=== PATIENT | male | born 1955 | race Caucasian/White ===

== ENCOUNTER 2016-02-23 18:04 | Emergency (ER) | payer SELFPAY ==
[2016-02-23 18:28] VITALS: BP 130/74
== END 2016-02-23 22:45 | disposition left against medical advice (07) ==
LOC: ER 18:04
DX: Z53.21 Procedure and treatment not carried out due to patient leaving prior to being seen by health care provider (principal)

== ENCOUNTER 2016-08-30 09:03 | Emergency (ER) | payer SELFPAY ==
[2016-08-30] MEDS ORDERED: IPRATROPIUM/ALBUTEROL 0.5-2.5 MG/3 ML AMPUL NEB ONE (09:15)
--- NOTE | 2016-08-30 09:19 | ER Document Report ---
ED Medical Screen (RME) - General Chief Complaint: Congestion Stated Complaint: VOMITING Time Seen by Provider: 08/30/16 09:12 Mode of Arrival: Ambulatory Information source: Patient Notes: 60 yr old male non smoker presents with cough of 10 day duration productive green with sob I have greeted and performed a rapid initial assessment of this patient. A comprehensive ED assessment and evaluation of the patient, analysis of test results and completion of the medical decision making process will be conducted by additional ED providers. PHYSICAL EXAMINATION: GENERAL: Well-appearing, well-nourished and in no acute distress. HEAD: Atraumatic, normocephalic. EYES: Pupils equal round extraocular movements intact, conjunctiva are normal. ENT: Nares patent NECK: Normal range of motion LUNGS: course rhonchi left and right upper lobes Musculoskeletal: Normal range of motion NEUROLOGICAL: Normal speech, normal gait. PSYCH: Normal mood, normal affect. SKIN: Warm, Dry, normal turgor, no rashes or lesions noted. TRAVEL OUTSIDE OF THE [place] IN LAST 30 DAYS: No - Related Data Allergies/Adverse Reactions: Penicillins Allergy (Mild, Verified 08/30/16 09:10) Home Medications: Current Home Medications No Home Medications 08/30/16 [History] Past Medical History Pulmonary Medical History: Reports: Hx Pneumonia Renal/ Medical History: Denies: Hx Peritoneal Dialysis Musculoskeltal Medical History: Reports Hx Arthritis, Reports Hx Gout, Reports Hx Musculoskeletal Deformity, Reports Hx Musculoskeletal Trauma Past Surgical History: Reports: Hx Orthopedic Surgery - bilateral rotator cuffs , spinal - Immunizations Immunizations up to date: No Hx Diphtheria, Pertussis, Tetanus Vaccination: No Physical Exam - Vital signs Vitals: Temp Pulse Resp BP Pulse Ox 99.4 F 102 H 22 H 143/86 H 94 08/30/16 09:07 08/30/16 09:07 08/30/16 09:07 08/30/16 09:07 08/30/16 09:07 Course - Vital Signs Vital signs: Temp Pulse Resp BP Pulse Ox 99.4 F 102 H 22 H 143/86 H 94 08/30/16 09:07 08/30/16 09:07 08/30/16 09:07 08/30/16 09:07 08/30/16 09:07
[2016-08-30] MEDS ORDERED: BENZONATATE 100 MG CAPSULE PO ONE (09:20)
[2016-08-30] MEDS ORDERED: NORMAL SALINE 1000 ML 1,000 ML IV ONE (09:21)
[2016-08-30 09:54] LABS: APPEARANCE,URINE SLIGHTLY-CLOUDY; BILIRUBIN,URINE NEGATIVE (NEGATIVE); GLUCOSE, URINE NEGATIVE (NEGATIVE); KETONES,URINE NEGATIVE (NEGATIVE); LEUKOCYTE ESTERASE,URINE NEGATIVE (NEGATIVE); NITRITE,URINE NEGATIVE (NEGATIVE); PROTEIN,URINE 30 mg/dL (NEGATIVE); UROBILINOGEN,URINE NEGATIVE mg/dL (<2.0)
[2016-08-30 10:00] LABS: VENOUS BLOOD BASE EXCESS 2.6 mmol/L; VENOUS BLOOD HCO3 24.1 mmol/L (20-32); VENOUS BLOOD PCO2 29.1 mmHg (35-63); VENOUS BLOOD PH 7.54 (7.30-7.42)
[2016-08-30 10:00] LABS: HEMATOCRIT 43.8 % (37.9-51.0); HEMOGLOBIN 14.5 g/dL (13.5-17.0); HGB HCT DIFFERENCE -0.3; MEAN CORPUSCULAR HEMOGLOBIN 28.8 pg (27.0-33.4); MEAN CORPUSCULAR VOLUME 87 fl (80-97); RED BLOOD COUNT 5.02 10^6/uL (4.35-5.55); RED CELL DISTRIBUTION WIDTH 13.2 % (11.5-14.0); WHITE BLOOD COUNT 16.9 10^3/uL (4.0-10.5)
--- NOTE | 2016-08-30 10:18 | RADIOLOGY REPORT (SQ) ---
EXAM DESCRIPTION: CHEST PA/LAT COMPLETED DATE/TIME: 08/30/2016 9:57 am REASON FOR STUDY: productive cough, 10 days COMPARISON: None. EXAM PARAMETERS: NUMBER OF VIEWS: two views TECHNIQUE: Digital Frontal and Lateral radiographic views of the chest acquired. RADIATION DOSE: NA LIMITATIONS: none FINDINGS: LUNGS AND PLEURA: Prominent diffuse interstitial markings. Faint basilar density visualiz ed on the lateral view. No lobar infiltrates. No pleural effusion or pneumothorax. MEDIASTINUM AND HILAR STRUCTURES: No masses or contour abnormalities. HEART AND VASCULAR STRUCTURES: Heart normal size. No evidence for failure. BONES: No acute findings. Degenerative changes in the spine. HARDWARE: Hardware in the cervical spine. OTHER: No other significant finding. IMPRESSION: PROBABLE CHRONIC INTERSTITIAL SCARRING. CANNOT EXCLUDE EARLY BASILAR INFILTRATE ON THE LATERAL VIEW. TECHNICAL DOCUMENTATION: JOB ID: [id number] [employer]- All Rights Reserved
[2016-08-30 10:28] LABS: BASOPHILS % (MANUAL) 1 % (0-2); EOSINOPHILS % (MANUAL) 0 % (0-6); LYMPHOCYTES % (MANUAL) 3 % (13-45); TOTAL CELLS COUNTED 100
[2016-08-30 10:30] LABS: TOXIC GRANULATION 1+
[2016-08-30 10:31] LABS: PLATELET CLUMPS PRESENT; POLYCHROMASIA SLIGHT
[2016-08-30 10:36] LABS: ALANINE AMINOTRANSFERASE 32 U/L (21-72); ALBUMIN 4.2 g/dL (3.5-5.0); ALKALINE PHOSPHATASE 94 U/L (38-126); ANION GAP 14 (5-19); ASPARTATE AMINO TRANSFERASE 26 U/L (17-59); BILIRUBIN,DIRECT 0.4 mg/dL (0.0-0.4); BLOOD UREA NITROGEN 9 mg/dL (7-20); CALCIUM 9.8 mg/dL (8.4-10.2); CARBON DIOXIDE 23 mmol/L (22-30); CHLORIDE 101 mmol/L (98-107); CREATININE RESULT 0.86 mg/dL (0.52-1.25); GLUCOSE 106 mg/dL (75-110); POTASSIUM 4.5 mmol/L (3.6-5.0); SODIUM 137.6 mmol/L (137-145); TOTAL PROTEIN 8.1 g/dL (6.3-8.2)
[2016-08-30] MEDS ORDERED: LEVOFLOXACIN 750 MG TABLET PO ONE (12:36)
--- NOTE | 2016-08-30 12:39 | ER Document Report ---
ED Respiratory Problem - General Chief Complaint: Congestion Stated Complaint: VOMITING Time Seen by Provider: 08/30/16 09:12 Mode of Arrival: Ambulatory Information source: Patient Notes: Patient is a 60-year-old male who presents today with the onset around 5 days ago when he nose, congestion, productive cough of yellow phlegm without any chest pain, calf pain, leg swelling. Patient states low-grade fever at home. He denies any vomiting or diarrhea. Patient denies any history of smoking. TRAVEL OUTSIDE OF THE [place] IN LAST 30 DAYS: No - HPI Patient complains to provider of: Short of breath Onset: Other - See above Duration: Better Quality of pain: No pain Severity: Mild Pain Level: Denies Short of Breath: Mild Cough: Productive Associated symptoms: Other - See above Similar symptoms previously: No Recently seen / treated by doctor: No - Related Data Allergies/Adverse Reactions: Penicillins Allergy (Mild, Verified 08/30/16 09:10) Past Medical History - General Information source: Patient - Social History Smoking Status: Never Smoker Cigarette use (# per day): No Chew tobacco use (# tins/day): No Smoking Education Provided: No Family History: CAD, DM, Hyperlipidemia, Hypertension, Malignancy Patient has suicidal ideation: No Patient has homicidal ideation: No Pulmonary Medical History: Reports: Hx Pneumonia Renal/ Medical History: Denies: Hx Peritoneal Dialysis Musculoskeltal Medical History: Reports Hx Arthritis, Reports Hx Gout, Reports Hx Musculoskeletal Deformity, Reports Hx Musculoskeletal Trauma Past Surgical History: Reports: Hx Orthopedic Surgery - bilateral rotator cuffs , spinal - Immunizations Immunizations up to date: No Hx Diphtheria, Pertussis, Tetanus Vaccination: No Review of Systems - Review of Systems Constitutional: Fever EENT: Nose congestion, Nose discharge. denies: Eye discharge Cardiovascular: denies: Chest pain, Palpitations Respiratory: Short of breath. denies: Hemoptysis Gastrointestinal: denies: Vomiting Genitourinary: denies: Dysuria Musculoskeletal: denies: Leg swelling Skin: Other - no hives. denies: Rash Neurological/Psychological: Other - no slurred speech -: Yes All other systems reviewed and negative Physical Exam - Vital signs Vitals: Temp Pulse Resp BP Pulse Ox 99.4 F 102 H 22 H 143/86 H 94 08/30/16 09:07 08/30/16 09:07 08/30/16 09:07 08/30/16 09:07 08/30/16 09:07 Notes: Reviewed vital signs and nursing note as charted by RN. CONSTITUTIONAL: Alert and oriented and responds appropriately to questions. Well -appearing; well-nourished HEAD: Normocephalic; atraumatic EYES: PERRL; Conjunctivae clear, sclerae non-icteric ENT: Normal nose; bilateral nonpurulent rhinorrhea; moist mucous membranes; pharynx without lesions noted NECK: Supple without meningismus; non-tender; no cervical lymphadenopathy, no masses CARD: Regular rate and rhythm; no murmurs, no clicks, no rubs, no gallops; symmetric distal pulses RESP: Normal chest excursion without splinting or tachypnea; breath sounds clear and equal bilaterally; scattered rhonchi to the left lower lung field with minimal end expiratory wheezing ABD/GI: Normal bowel sounds; non-distended; soft, non-tender BACK: The back appears normal and is non-tender to palpation, there is no CVA tenderness EXT: Normal ROM in all joints; non-tender to palpation; no cyanosis, no effusions, no edema SKIN: Normal color for age and race; warm; dry; good turgor; capillary refill < 2 seconds; no acute lesions noted NEURO: Moves all extremities equally; Motor and sensory function intact PSYCH: The patient's mood and manner are appropriate. Grooming and personal hygiene are appropriate. Course - Re-evaluation Re-evalutation: Given the above history and physical examination we will order an x-ray of the chest, EKG, cardiac panel, and reassess. Given the runny nose, congestion, low- grade fevers, I do believe pulmonary embolism to be unlikely. 08/30/16 12:38 X-ray of the chest as recorded. Levaquin has been provided. 08/30/16 12:39 EKG shows a heart rate of 95, normal sinus rhythm, normal axis, no obvious ST elevation or depression 08/30/16 13:30 Laboratory work and x-ray of the chest is recorded showing a possible pneumonia with an elevated white blood cell count. Patient's vital signs still stable with a room air oxygen saturation 94%. Lactic acid is normal. Patient has no allergies to Levaquin and I have given him a dose here in the emergency department. Patient will be discharged home with strict return precautions, antibiotics, and follow-up instructions. - Vital Signs Vital signs: Temp Pulse Resp BP Pulse Ox 99.4 F 102 H 22 H 143/86 H 94 08/30/16 09:07 08/30/16 09:07 08/30/16 09:07 08/30/16 09:07 08/30/16 09:07 - Laboratory Result Diagrams: 08/30/16 09:44 08/30/16 09:41 Laboratory results interpreted by me: 08/30/16 08/30/16 08/30/16 09:16 09:41 09:44 WBC 16.9 H Seg Neuts % (Manual) 92 H Lymphocytes % (Manual) 3 L Abs Neuts (Manual) 15.5 H VBG pH 7.54 H VBG pCO2 29.1 L Urine Protein 30 H Urine Ascorbic Acid 40 H Discharge - Discharge Clinical Impression: Bacterial pneumonia Condition: Good Disposition: HOME, SELF-CARE Additional Instructions: Come back immediately with any worsening cough, fevers, vomiting, leg swelling or any other acute problems. Please follow up with the [facility] as we have discussed. Prescriptions: Levofloxacin [Levaquin 750 mg Tablet] 750 mg PO DAILY #5 tablet
[2016-08-30] MEDS ORDERED: IPRATROPIUM/ALBUTEROL 0.5-2.5 MG/3 ML AMPUL NEB SCH (13:00)
--- NOTE | 2016-08-30 13:10 | EKG REPORT ---
SEVERITY:- NORMAL ECG - SINUS RHYTHM : Confirmed by: Stewart Archer MD 30-Aug-2016 13:09:19
[2016-08-30 14:22] VITALS: BP 108/69
== END 2016-08-30 14:22 | disposition home or self-care (01) ==
LOC: ER 09:03
DX: J15.9 Unspecified bacterial pneumonia (principal); R09.81 Nasal congestion; R11.10 Vomiting, unspecified; R06.02 Shortness of breath
CPT/HCPCS: 93005; 94640 ×2; 99284; 96360; 36415; 87040; 87086; 85025; 85610; 87077; 80053; 81001; 82803; 83605; 71020; 93010; J7030; J7620

== ENCOUNTER 2017-10-18 07:56 | Emergency (ER) | payer SELFPAY ==
--- NOTE | 2017-10-18 09:39 | ER Document Report ---
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 It hurts more with movement. No radiation to the testicle. No history kidney stones.. It waxes and wanes over that period. There is no radiculopathy, no saddle anesthesia, no IV drug use, no fever or chills. No history of cancer. Past Medical History - Social History Smoking Status: Never Smoker Chew tobacco use (# tins/day): No Drug Abuse: Marijuana Family History: CAD, DM, Hyperlipidemia, Hypertension, Malignancy Patient has suicidal ideation: No Patient has homicidal ideation: No Pulmonary Medical History: Reports: Hx Pneumonia Renal/ Medical History: Denies: Hx Peritoneal Dialysis Musculoskeletal Medical History: Reports Hx Arthritis, Reports Hx Gout, Reports Hx Musculoskeletal Deformity, Reports Hx Musculoskeletal Trauma Past Surgical History: Reports: Hx Orthopedic Surgery - bilateral rotator cuffs , spinal - Immunizations Immunizations up to date: No Hx Diphtheria, Pertussis, Tetanus Vaccination: No Vertical Provider Document - INFECTION CONTROL TRAVEL OUTSIDE OF THE [place] IN LAST 30 DAYS: No - HEENT HEENT: Normocephalic - NECK Neck: Supple - RESPIRATORY Respiratory: Breath Sounds Normal, No Respiratory Distress - CARDIOVASCULAR Cardiovascular: Regular Rate, Regular Rhythm - MUSCULOSKELETAL/EXTREMETIES Musculoskeletal/Extremeties: MAEW, FROM, Tender - right lower lubar and SI joint area muscles - NEURO Level of Consciousness: Alert Deep Tendon Reflexes: 2+ - servando ankle and patellar - DERM Integumentary: No Rash Course - Re-evaluation Re-evalutation: 10/18/17 10:32 Urinalysis is negative, the x-ray shows mild arthritis in the spine. - Vital Signs Vital signs: Temp Pulse Resp BP Pulse Ox 98.4 F 70 18 109/63 100 10/18/17 08:00 10/18/17 08:00 10/18/17 08:00 10/18/17 08:00 10/18/17 08:00 Discharge - Discharge Clinical Impression: Low back strain Condition: Good Disposition: HOME, SELF-CARE Instructions: Low Back Pain ([facility]), Muscle Strain ([facility]), Warm Packs ([facility]), Acetaminophen, Use of Bjft-Psl-Weftiwg Ibuprofen ([facility]) Additional Instructions: warm compress Tylenol up to 4000 mg a day for pain Motrin 800 mg 3 times a day for inflammation Muscle relaxers 3 times a day Return to the emergency room any worsening of the symptoms Prescriptions: Ibuprofen [Motrin 800 mg Tablet] 800 mg PO Q8HP PRN #30 tablet PRN Reason: Cyclobenzaprine HCl [Flexeril 10 Mg Tablet] 10 mg PO TIDP PRN #20 tablet PRN Reason:
[2017-10-18] MEDS ORDERED: ACETAMINOPHEN 325 MG TABLET PO ONE (09:44)
[2017-10-18] MEDS ORDERED: IBUPROFEN 800 MG TABLET PO ONE (09:44)
--- NOTE | 2017-10-18 10:15 | RADIOLOGY REPORT (SQ) ---
EXAM DESCRIPTION: L SPINE WHOLE COMPLETED DATE/TIME: 10/18/2017 10:03 am REASON FOR STUDY: low back paih COMPARISON: None. NUMBER OF VIEWS: Five views including obliques. TECHNIQUE: AP, lateral, oblique, and sacral radiographic images acquired of the lumbar spine. LIMITATIONS: None. FINDINGS: MINERALIZATION: Normal. SEGMENTATION: Normal. No transitional anatomy. ALIGNMENT: There is very slight retrolisthesis of L3 on L4. VERTEBRAE: Maintained height. No fracture or worrisome bone lesion. DISCS: Mild disc space narrowing at L1-L2, L2-L3 and L3-L4. POSTERIOR ELEMENTS: Pedicles and facets are intact. No pars defect or posterior arch defects. HARDWARE: None in the spine. PARASPINAL SOFT TISSUES: Normal. PELVIS: Intact as visualized. No fractures or worrisome bone lesions. SI joints intact. OTHER: No other significant finding. IMPRESSION: Mild spondylosis in the upper lumbar spine. There is slight retrolisthesis of L3 on L4. No acute findings. TECHNICAL DOCUMENTATION: JOB ID: [id number] [employer]- All Rights Reserved Reading location - IP/workstation name: [email or web address]
[2017-10-18 10:30] LABS: APPEARANCE,URINE CLEAR; BILIRUBIN,URINE NEGATIVE (NEGATIVE); COLOR,URINE YELLOW; GLUCOSE, URINE NEGATIVE (NEGATIVE); KETONES,URINE NEGATIVE (NEGATIVE); LEUKOCYTE ESTERASE,URINE NEGATIVE (NEGATIVE); NITRITE,URINE NEGATIVE (NEGATIVE); PROTEIN,URINE NEGATIVE (NEGATIVE); URINE SPECIFIC GRAVITY 1.005; UROBILINOGEN,URINE NEGATIVE mg/dL (<2.0)
[2017-10-18 10:36] VITALS: BP 117/67
== END 2017-10-18 10:39 | disposition home or self-care (01) ==
LOC: ER 07:56
DX: S39.012A Strain of muscle, fascia and tendon of lower back, initial encounter (principal); X50.0XXA Overexertion from strenuous movement or load, initial encounter; Y93.F2 Activity, caregiving, lifting; F12.10 Cannabis abuse, uncomplicated
CPT/HCPCS: 72110; 81001; 99283